=== PATIENT | female | born 1975 | race Caucasian/White ===

== ENCOUNTER 2019-05-28 13:21 | Emergency (ER) | payer OTHER ==
[~2019-05-28] VITALS: Ht 142.2 cm; Wt 47.6 kg
--- NOTE | 2019-05-28 14:18 | NUR ---
PT WAS EVALUATED BY DR MERCADO. PT WAS D/C'd TO HOME. D/C INSTRUCTIONS GIVEN TO THE PT.
== END 2019-05-28 14:19 | disposition home or self-care (01) ==
LOC: ER 13:21
DX: T19.2XXA Foreign body in vulva and vagina, initial encounter (principal); X58.XXXA Exposure to other specified factors, initial encounter; Y93.89 Activity, other specified; Y92.89 Other specified places as the place of occurrence of the external cause; Y99.8 Other external cause status
CPT/HCPCS: A4663